=== PATIENT | male | born 1995 ===

== ENCOUNTER 2021-01-06 09:05 | Outpatient (CLI) | payer OTHER | END 2021-01-06 09:10 | disposition home or self-care (01) | LOC: PPH VACUNA 09:05 | PROVIDERS: ATTEND Emergency Medicine Pediatric Emergency Medicine | DX: Z23 Encounter for immunization (principal) ==

== ENCOUNTER 2022-07-14 09:06 | Emergency (ER) | payer OTHER ==
[~2022-07-14] VITALS: Ht 172.7 cm; Wt 86.6 kg
[2022-07-14] MEDS ORDERED: PROPRANOLOL HCL20 MG PO (09:20)
== END 2022-07-14 10:18 | disposition home or self-care (01) ==
LOC: ER 09:06
DX: S90.415A Abrasion, left lesser toe(s), initial encounter (principal); W25.XXXA Contact with sharp glass, initial encounter; Y93.9 Activity, unspecified; Y92.89 Other specified places as the place of occurrence of the external cause; Y99.9 Unspecified external cause status
CPT/HCPCS: 90471; 90714; J1670